=== PATIENT | female | born 1985 | race African-American/Black ===

== ENCOUNTER 2019-03-02 05:50 | Inpatient (IN) ==
[2019-03-02 07:08] LABS: URINE SOURCE CLEAN CATCH
[2019-03-02 07:16] LABS: BILIRUBIN URINE NEGATIVE (NEGATIVE); BLOOD URINE NEGATIVE (NEGATIVE); COLOR ORANGE; GLUCOSE URINE NEGATIVE (NEGATIVE); KETONE URINE NEGATIVE (NEGATIVE); LEUKOCYTES URINE TRACE (NEGATIVE); NITRITE URINE NEGATIVE (NEGATIVE); PROTEIN URINE TRACE mg/dL (NEGATIVE); SP GRAVITY URINE 1.014; TURBIDITY URINE HAZY (CLEAR); UROBILINOGEN URINE 8 mg/dL (NORMAL)
[2019-03-02] MEDS ORDERED: NS 1,000 ML IV ONE (07:16)
[2019-03-02] MEDS ORDERED: DILAUDID IV ONE ×2 (07:17→09:58)
[2019-03-02] MEDS ORDERED: PHENERGAN IM ONE (07:17)
[2019-03-02] MEDS ORDERED: CATAPRES-TTS-1 TD ONE (07:17)
[2019-03-02] MEDS ORDERED: ZOFRAN IV ONE (07:17)
[2019-03-02] MEDS ORDERED: BENADRYL IV ONE (07:17)
[2019-03-02] MEDS ORDERED: NORFLEX IV ONE (07:17)
[2019-03-02] MEDS ORDERED: LIBRIUM PO ONE (07:17)
[2019-03-02 07:18] LABS: UR EPITHELIAL CELLS >10 /HPF (<10); URINE BACTERIA 1+ /HPF; URINE RBC <10 /HPF (<10); URINE WBC <10 /HPF (<10)
[2019-03-02] MEDS ORDERED: EMLA CREAM ONE (07:20)
[2019-03-02 07:31] LABS: UR AMPHETAMINES QUAL NONE DETECTED (NONE DETECT); UR BARBITUATES QUAL NONE DETECTED (NONE DETECT); UR BENZODIAZEPIN QUAL NONE DETECTED (NONE DETECT); UR CANNABINOIDS QUAL NONE DETECTED (NONE DETECT); UR COCAINE QUAL NONE DETECTED (NONE DETECT); UR METHADONE QUAL NONE DETECTED (NONE DETECT); UR OPIATES QUAL NONE DETECTED (NONE DETECT); UR OXYCODONE QUAL NONE DETECTED (NONE DETECT); UR PCP QUAL NONE DETECTED (NONE DETECT)
--- NOTE | 2019-03-02 08:00 | Diag Imaging Result Doc PS360 ---
EXAM: CHEST-2 VIEWS HISTORY: short of breath TECHNIQUE: Two views COMPARISON: 12/31/2017 FINDINGS: The lungs are well expanded. The heart is not enlarged. There is a right portacatheter. No pneumothorax. The vessels are not distended. There are no infiltrates. No pleural effusions. IMPRESSION: No acute abnormality. Electronically signed by Garret Benedict 03/02/2019 7:58 AM
[2019-03-02 08:35] LABS: BASO# 0.03 X1000 (0.0-0.2); BASO% 0.2 % (0.0-0.8); EOS# 0.33 X1000 (0.0-0.7); EOS% 2.1 % (0.0-10.0); HEMATOCRIT 22.3 % (37.0-47.0); HEMOGLOBIN 7.3 g/dL (12.0-16.0); IMM GRAN# 0.03 X1000 (0.0-0.04); IMM GRAN% 0.2 % (0.0-0.5); LYMPH# 7.79 X1000 (1.2-3.4); LYMPH% 48.7 % (20.5-51.1); MCH 31.3 PG (27-31); MCHC 32.7 g/dL (33-37); MCV 95.7 FL (81-99); MONO# 0.81 X1000 (0.11-0.59); MONO% 5.1 % (1.7-9.3); MPV 10.7 FL (7.4-10.4); NEUT# 7.01 X1000 (1.4-6.5); NEUT% 43.7 % (42.2-75.2); PLT 287 X1000 (130-400); RBC 2.33 XMIL (4.2-5.4); RDW 22.4 % (11.5-14.5); RETIC% 9.24 % (0.8-2.1); RETIC-HE 39.7 PG (28.2-36.6)
[2019-03-02 08:49] LABS: AGAP 10; ALBUMIN 3.7 g/dL (3.5-5.0); ALKALINE PHOSPHATASE 104 U/L (32-104); BUN 5 mg/dL (8-22); CALCIUM 8.8 mg/dL (8.8-10.2); CHLORIDE 103 mmol/L (98-107); COSMO 278; CREATININE 0.3 mg/dL (0.5-0.9); ESTIMATED GFR > 60; GLUCOSE 97 mg/dL (70-104); GOT 33 U/L (10-30); GPT 12 U/L (10-36); SODIUM 141 mmol/L (136-145); TCO2 28 mmol/L (25-35); TOTAL BILIRUBIN 1.74 mg/dL (0.20-1.00); TOTAL PROTEIN 7.3 g/dL (6.3-8.3)
[2019-03-02] MEDS ORDERED: KLOR-CON PO ONE ×2 (09:55→13:00)
[2019-03-02] MEDS ORDERED: SEPTRA DS PO ONE (09:56)
[2019-03-02] MEDS ORDERED: BENADRYL PO ONE (09:57)
[2019-03-02] MEDS ORDERED: TYLENOL PO ONE (09:57)
[2019-03-02] MEDS ORDERED: NS 500 ML IV ONE (09:57)
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
[2019-03-02] MEDS ORDERED: LASIX IV SCH (10:00)
[2019-03-02] MEDS ORDERED: PHENERGAN IV PRN ×2 (11:30→16:17)
[2019-03-02] MEDS ORDERED: SODIUM CHLORIDE 0.9% INJ PRN (11:30)
[2019-03-02] MEDS: DEPAKOTE PO SCH ×2 (13:37→17:37)
[2019-03-02] MEDS: KEPPRA PO SCH (13:37)
[2019-03-02] MEDS: HYDREA PO SCH ×2 (13:38→21:15)
[2019-03-02] MEDS: NS 1,000 ML IV SCH ×2 (13:38→19:16)
[2019-03-02] MEDS: DILAUDID IV PRN ×3 (14:34→21:05)
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
[2019-03-02] MEDS: SEROQUEL PO SCH (21:04)
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
[2019-03-03] MEDS ORDERED: DILAUDID PO PRN (02:00)
[2019-03-03] MEDS: NS 1,000 ML IV SCH ×3 (03:19→22:00)
[2019-03-03] MEDS: PHENERGAN PO PRN ×2 (04:46→12:09)
[2019-03-03 05:23] LABS: BASO# 0.04 X1000 (0.0-0.2); BASO% 0.2 % (0.0-0.8); EOS# 0.58 X1000 (0.0-0.7); EOS% 3.3 % (0.0-10.0); HEMATOCRIT 20.7 % (37.0-47.0); HEMOGLOBIN 6.7 g/dL (12.0-16.0); IMM GRAN# 0.03 X1000 (0.0-0.04); IMM GRAN% 0.2 % (0.0-0.5); LYMPH# 11.21 X1000 (1.2-3.4); LYMPH% 63.5 % (20.5-51.1); MCH 31.2 PG (27-31); MCHC 32.4 g/dL (33-37); MCV 96.3 FL (81-99); MONO# 0.74 X1000 (0.11-0.59); MONO% 4.2 % (1.7-9.3); MPV 10.2 FL (7.4-10.4); NEUT# 5.06 X1000 (1.4-6.5); NEUT% 28.6 % (42.2-75.2); PLT 288 X1000 (130-400); RBC 2.15 XMIL (4.2-5.4); RDW 22.5 % (11.5-14.5); WBC 17.66 X1000 (4.8-10.8)
[2019-03-03 05:47] LABS: EOS 6 % (1-10); LYMPHS 58 % (21-51); MONO 2 % (1-9); NRBC 20 % (0-0); SEGS 32 % (42-75)
[2019-03-03 05:54] LABS: AGAP 11; BUN 4 mg/dL (8-22); CALCIUM 8.3 mg/dL (8.8-10.2); CHLORIDE 104 mmol/L (98-107); COSMO 274; CREATININE 0.3 mg/dL (0.5-0.9); ESTIMATED GFR > 60; GLUCOSE 86 mg/dL (70-104); POTASSIUM 3.9 mmol/L (3.5-5.1); SODIUM 139 mmol/L (136-145); TCO2 24 mmol/L (25-35)
[2019-03-03] MEDS ORDERED: BENADRYL PO SCH (09:00)
[2019-03-03] MEDS: BENADRYL PO SCH (09:36)
[2019-03-03] MEDS: DEPAKOTE PO SCH ×3 (09:36→17:37)
[2019-03-03] MEDS: HYDREA PO SCH ×2 (09:40→21:49)
[2019-03-03] MEDS: KEPPRA PO SCH (09:40)
[2019-03-03] MEDS: FOLIC ACID PO SCH (09:40)
[2019-03-03] MEDS: MAGNESIUM SULFATE 2 GM/S.W.I. 2 GM/50 ML IVPB IV SCH ×2 (09:49→15:21)
[2019-03-03 10:34] LABS: FERRITIN 12134 ng/mL (13-150)
[2019-03-03 11:05] LABS: TOTAL IRON 169 ug/dL (49-151)
[2019-03-03 11:06] LABS: UNBOUND IRON 3 ug/dL (112-346)
[2019-03-03 11:07] LABS: IRON SATURATION 98 %; TIBC 172 ug/dL
[2019-03-03] MEDS ORDERED: TESSALON PO PRN (11:07)
[2019-03-03] MEDS: DILAUDID IV PRN ×4 (12:10→21:56)
--- NOTE | 2019-03-03 12:48 | PROGRESS NOTE ---
DATE: 03/03/2019 INTERVAL HISTORY: No acute events overnight. The patient states that she had an episode of vomiting overnight. She does not feel like eating anything at the moment. We discussed about continuing IV fluids and pain management. I answered all of her questions. VITAL SIGNS: Suggests temperature of 97.5 degrees, pulse 95, respiratory rate 12, blood pressure 126/51 and saturating 100% room air. PHYSICAL EXAMINATION: She is drowsy not in any distress. HEENT: Oral cavity is dry. Lungs: Air entry bilaterally equal. No wheeze, rhonchi, crackles. Cardiovascular: S1, S2 normal. No murmur or gallop. She has a right-sided chest port. Abdomen: Soft, nontender. Extremities: No lower extremity edema. Neurologic: She is alert and oriented x3. LABORATORY: Labs are suggestive of leukocytosis, anemia, normal platelet count, and resolution of hypokalemia. She also has hypomagnesemia. Iron panel is pending. The flu screen was negative. No new imaging data. ASSESSMENT AND PLAN: Sickle cell crisis. Continue intravenous fluids, and oral hydromorphone. I will give her additional pain medication as required. Follow-up iron studies. Based on that, I will consider giving her 1 unit of blood transfusion. I will continue her home hydroxyurea and folic acid. Recent craniotomy. Continue home Keppra and Depakote for seizure prophylaxis. History of bipolar mood disorder. Continue her home Depakote as well as quetiapine. DISPOSITION: I will currently monitor patient inside the hospital. I called patient's sister on her phone and informed her about patient's clinical condition. The sister requested that the patient should get [place] or Percocet for her pain since the hydromorphone does not help. She also requested if I could write her a prescription of pain medications, and other medications at the time of discharge, and find a regular physician. I would request my discharge nurse to help set up an appointment with her regular physician. cc: Trey [facility] MD
[2019-03-03] MEDS: SEROQUEL PO SCH (21:49)
[2019-03-04] MEDS: DILAUDID IV PRN ×2 (01:39→05:14)
[2019-03-04 05:59] LABS: HEMATOCRIT 20.3 % (37.0-47.0); HEMOGLOBIN 6.6 g/dL (12.0-16.0); RBC 2.09 XMIL (4.2-5.4); WBC 14.31 X1000 (4.8-10.8)
[2019-03-04 06:00] LABS: BASO# 0.03 X1000 (0.0-0.2); BASO% 0.2 % (0.0-0.8); EOS# 0.45 X1000 (0.0-0.7); EOS% 3.1 % (0.0-10.0); IMM GRAN# 0.04 X1000 (0.0-0.04); IMM GRAN% 0.3 % (0.0-0.5); LYMPH# 9.26 X1000 (1.2-3.4); LYMPH% 64.7 % (20.5-51.1); MCH 31.6 PG (27-31); MCHC 32.5 g/dL (33-37); MCV 97.1 FL (81-99); MONO% 3.5 % (1.7-9.3); MPV 10.3 FL (7.4-10.4); NEUT# 4.03 X1000 (1.4-6.5); NEUT% 28.2 % (42.2-75.2); PLT 289 X1000 (130-400); RDW 23.5 % (11.5-14.5)
[2019-03-04] MEDS: NS 1,000 ML IV SCH ×3 (06:36→11:58)
[2019-03-04] MEDS ORDERED: DILAUDID PO PRN (07:00)
[2019-03-04 07:29] LABS: ANISOCYTOSIS 3+; HYPOCHROM 2+; LYMPHS 59 % (21-51); MONO 1 % (1-9); NRBC 21 % (0-0); SEGS 40 % (42-75)
[2019-03-04 07:30] LABS: POIKILOCYTOSIS 3+; TARGET CELLS 3+
[2019-03-04 07:31] LABS: SICKLE CELLS 2+
[2019-03-04] MEDS: DEPAKOTE PO SCH ×4 (08:35→18:19)
[2019-03-04] MEDS: KEPPRA PO SCH (08:35)
[2019-03-04] MEDS: FOLIC ACID PO SCH (08:35)
[2019-03-04] MEDS: BENADRYL PO SCH (08:35)
[2019-03-04] MEDS: HYDREA PO SCH ×2 (08:38→21:23)
[2019-03-04 15:43] LABS: RETIC% 13.76 % (0.8-2.1); RETIC-HE 37.1 PG (28.2-36.6)
[2019-03-04] MEDS: DILAUDID PO PRN (17:08)
[2019-03-04] MEDS: LOVENOX SUBQ SCH (17:09)
[2019-03-04] MEDS: SEROQUEL PO SCH (21:22)
[2019-03-05] MEDS: NS 1,000 ML IV SCH ×3 (01:31→10:55)
--- NOTE | 2019-03-05 02:49 | PROGRESS NOTE ---
DATE: 03/04/2019 INTERVAL HISTORY: No acute events overnight. Her hemoglobin dropped. SUBJECTIVE: The patient denies any chest pain, shortness of breath, nausea, vomiting, abdominal pain or diarrhea. She states she still has pain in her body, but it is better than before. She wants me to address her hemoglobin and I discussed with her, but she denies any dizziness, so in agreement with each other, decided to check the hemoglobin tomorrow and if it drops down, give her blood transfusion at that time. She is in agreement. OBJECTIVE: Vital signs: Temperature 98 degrees, pulse 102, respiratory 24, blood pressure 133/69, saturating 100% on 1 L nasal cannula. General: She is not in any acute distress. HEENT: Oral cavity is moist. Lungs: Air equal bilaterally. No wheeze, no rhonchi, no crackles. Cardiovascular: S1, S2 normal. No murmur, rub, or gallop. She has a right-sided chest port. Abdomen: Soft, nontender. Extremity: No lower extremity edema. Neurologic: She is alert and oriented x3. LABS: Suggestive of hemoglobin of 6.6, which decreased from 7.3 on presentation. Historically, her hemoglobin has been around 7.8. Platelet count is 289,000. She does have elevated reticulocyte count. No BMP today. Microbiology: Influenza screen on admission was negative. Urine culture is growing mixed shilo. ASSESSMENT AND PLAN: 1. Sickle cell crisis. Continue intravenous fluids. Increase the frequency of oral hydromorphone and give Phenergan as needed for nausea and vomiting. Iron studies suggest excessive amount of ferritin and increased hemoglobin saturation with high serum iron. I would avoid blood transfusion as much as possible. She does have low folic acid and she is on folic acid supplement. Her vaso-occlusive crisis appears to be uncomplicated at the moment. I will follow up with hemoglobin tomorrow. If she has symptoms or she has worsening hemoglobin, then we will consider blood transfusion. 2. History of recent craniotomy and seizure. Continue levetiracetam, quetiapine and divalproex. I will also continue her home hydroxyurea for sickle cell with folic acid. DISPOSITION: Continue to monitor patient in the hospital as she is still complaining of pain. Plan of care discussed with her. All questions have been answered. cc: Trey Ledezma MD
[2019-03-05 06:03] LABS: BASO# 0.03 X1000 (0.0-0.2); BASO% 0.2 % (0.0-0.8); HEMATOCRIT 20.9 % (37.0-47.0); HEMOGLOBIN 6.9 g/dL (12.0-16.0); MCH 32.7 PG (27-31); MCV 99.1 FL (81-99); MPV 10.1 FL (7.4-10.4); PLT 275 X1000 (130-400); RBC 2.11 XMIL (4.2-5.4); RDW 25.6 % (11.5-14.5); WBC 12.23 X1000 (4.8-10.8)
[2019-03-05 08:00] LABS: EOS 2 % (1-10); LYMPHS 72 % (21-51); MONO 2 % (1-9); NRBC 7 % (0-0); SEGS 22 % (42-75)
[2019-03-05 08:01] LABS: ANISOCYTOSIS 2+; HYPOCHROM 1+; POIKILOCYTOSIS 1+
[2019-03-05 08:03] LABS: HOWELL-JOLLY BODIES 1+
[2019-03-05] MEDS: KEPPRA PO SCH (08:58)
[2019-03-05] MEDS: BENADRYL PO SCH (08:58)
[2019-03-05] MEDS: HYDREA PO SCH ×2 (08:58→21:18)
[2019-03-05] MEDS: FOLIC ACID PO SCH (08:58)
[2019-03-05] MEDS: DEPAKOTE PO SCH ×3 (08:58→17:15)
[2019-03-05] MEDS: MIRALAX PO SCH (09:00)
[2019-03-05] MEDS ORDERED: NS 500 ML IV ONE (16:11)
[2019-03-05 16:23] LABS: AGAP 10; BUN 5 mg/dL (8-22); CALCIUM 8.8 mg/dL (8.8-10.2); CHLORIDE 104 mmol/L (98-107); COSMO 276; CREATININE 0.4 mg/dL (0.5-0.9); ESTIMATED GFR > 60; GLUCOSE 118 mg/dL (70-104); MAGNESIUM 1.5 mg/dL (1.5-2.7); POTASSIUM 3.5 mmol/L (3.5-5.1); SODIUM 139 mmol/L (136-145); TCO2 25 mmol/L (25-35)
[2019-03-05] MEDS: KLOR-CON PO SCH ×2 (17:16→21:18)
[2019-03-05] MEDS: PHENERGAN PO PRN (17:41)
[2019-03-05] MEDS: DILAUDID PO PRN ×2 (17:42→22:17)
[2019-03-05] MEDS: MAGNESIUM SULFATE 2 GM/S.W.I. 2 GM/50 ML IVPB IV SCH ×2 (17:43→21:16)
[2019-03-05] MEDS: LOVENOX SUBQ SCH (18:07)
[2019-03-05] MEDS: SEROQUEL PO SCH (21:16)
--- NOTE | 2019-03-05 21:22 | PROGRESS NOTE ---
DATE: 03/05/2019 INTERVAL HISTORY: No acute events overnight. SUBJECTIVE: Ms. Mtz states that she is feeling weak and sleepy, and she thinks this is related to her low blood count. She in fact has not required a lot of pain medications, and she is feeling better in terms of her pain. She wants to know if she could be discharged tomorrow. I discussed with her about giving her a blood transfusion considering her low blood count and her symptoms of feeling weak, dizzy and sleepy. OBJECTIVE/PHYSICAL EXAMINATION: Vital Signs: Temperature 98.1, pulse 98, respiratory rate 16, blood pressure 112/59, saturating 100% on room air. General: Not in acute distress. HEENT: Oral cavity has poor dentition. Lungs: Air entry bilaterally equal. No wheeze, rhonchi, crackles. Cardiovascular: S1, S2 normal. No murmur or gallop. She has a right-sided chest port. Abdomen: Soft, nontender. Extremities: No lower extremity edema. Neurologic: She is alert and oriented x3. LABORATORY DATA: Her CBC has mild leukocytosis which has improved. Hemoglobin of 6.9, platelet of 275. Her BMP and magnesium today are pending. Microbiology: No new data. ASSESSMENT AND PLAN: 1. Sickle cell crisis, now appears to be improving. I will stop intravenous fluids. Discontinue Pleitez catheter. Continue current dose of oral hydromorphone and Phenergan as needed for nausea and vomiting. Considering she is symptomatic of her anemia, I will give her 1 unit of blood transfusion. Her baseline hemoglobin has been around 8. I will continue folic acid supplementation. 2. History of recent craniotomy and seizures. Continue levetiracetam, quetiapine, and divalproex, as well as hydroxyurea for her sickle-cell. DISPOSITION: If the patient's blood count improves tomorrow, my plan would be to discharge her home. Plan of care discussed with her. Her questions have been answered. cc: Trey Ledezma MD
--- NOTE | 2019-03-05 21:28 | PROGRESS NOTE ---
DATE: 03/05/2019 INTERVAL HISTORY: No acute events overnight. SUBJECTIVE: Ms. Mtz is complaining of some dizziness and feeling weak, so we decided to give her a blood transfusion. Her vitals are stable. LABORATORIES: Suggest electrolytes are normal, except low potassium, magnesium which I will replete. ASSESSMENT: 1. Sickle cell crisis. 2. History of recent craniotomy and seizures. PLAN: 1. Continue hydroxyurea, folic acid, give another transfusion. 2. Continue antiseizure medication. 3. Discharging tomorrow. cc: Trey Ledezma MD
[2019-03-06] MEDS: PHENERGAN PO PRN (02:35)
[2019-03-06] MEDS: DILAUDID PO PRN (02:36)
[2019-03-06] MEDS: MIRALAX PO SCH (08:34)
[2019-03-06] MEDS: HYDREA PO SCH (08:35)
[2019-03-06] MEDS: FOLIC ACID PO SCH (08:35)
[2019-03-06] MEDS: KEPPRA PO SCH (08:35)
[2019-03-06] MEDS: DEPAKOTE PO SCH ×2 (08:35→12:23)
[2019-03-06] MEDS: BENADRYL PO SCH (08:35)
[2019-03-06 08:50] LABS: HEMATOCRIT 26.5 % (37.0-47.0); HEMOGLOBIN 8.9 g/dL (12.0-16.0); MCH 33.1 PG (27-31); MCHC 33.6 g/dL (33-37); MCV 98.5 FL (81-99); MPV 9.6 FL (7.4-10.4); PLT 246 X1000 (130-400); RBC 2.69 XMIL (4.2-5.4); WBC 16.31 X1000 (4.8-10.8)
[2019-03-06 09:06] LABS: EOS 5 % (1-10); LYMPHS 69 % (21-51); MONO 3 % (1-9); NRBC 49 % (0-0); SEGS 23 % (42-75)
[2019-03-06 09:08] LABS: ANISOCYTOSIS 1+; HYPOCHROM 1+; POLYCHROM 1+
[2019-03-06 09:12] LABS: SICKLE CELLS OCCASIONAL
[2019-03-06 11:46] VITALS: BP 119/55
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
== END 2019-03-06 14:19 | disposition home or self-care (01) | DRG 812 ==
LOC: ED 05:50 → EDIPHOLD 10:53 → 1N 15:02
PROVIDERS: ATTEND Internal Medicine

== ENCOUNTER 2019-03-12 11:52 | Inpatient (IN) ==
[2019-03-12 12:51] LABS: BASO# 0.02 X1000 (0.0-0.2); BASO% 0.2 % (0.0-0.8); EOS# 0.38 X1000 (0.0-0.7); EOS% 2.9 % (0.0-10.0); IMM GRAN# 0.03 X1000 (0.0-0.04); IMM GRAN% 0.2 % (0.0-0.5); LYMPH# 5.73 X1000 (1.2-3.4); LYMPH% 44.3 % (20.5-51.1); MCH 33.5 PG (27-31); MCHC 33.3 g/dL (33-37); MCV 100.4 FL (81-99); MONO# 1.14 X1000 (0.11-0.59); MONO% 8.8 % (1.7-9.3); MPV 10.4 FL (7.4-10.4); NEUT# 5.64 X1000 (1.4-6.5); NEUT% 43.6 % (42.2-75.2); PLT 268 X1000 (130-400); RBC 2.69 XMIL (4.2-5.4); RDW 23.5 % (11.5-14.5); WBC 12.94 X1000 (4.8-10.8)
[2019-03-12 12:52] LABS: URINE SOURCE CLEAN CATCH
[2019-03-12 12:59] LABS: BILIRUBIN URINE NEGATIVE (NEGATIVE); BLOOD URINE NEGATIVE (NEGATIVE); COLOR YELLOW; GLUCOSE URINE NEGATIVE (NEGATIVE); KETONE URINE NEGATIVE (NEGATIVE); LEUKOCYTES URINE NEGATIVE (NEGATIVE); NITRITE URINE NEGATIVE (NEGATIVE); PROTEIN URINE TRACE mg/dL (NEGATIVE); SP GRAVITY URINE 1.015; TURBIDITY URINE HAZY (CLEAR); UROBILINOGEN URINE 2 mg/dL (NORMAL)
[2019-03-12 13:01] LABS: UR EPITHELIAL CELLS >10 /HPF (<10); URINE BACTERIA 1+ /HPF; URINE RBC <10 /HPF (<10); URINE WBC <10 /HPF (<10)
[2019-03-12 13:02] LABS: AGAP 8; ALB/GLOB RATIO 1.1; ALBUMIN 4.1 g/dL (3.5-5.0); ALKALINE PHOSPHATASE 126 U/L (32-104); BUN 12 mg/dL (8-22); CHLORIDE 101 mmol/L (98-107); COSMO 272; CREATININE 0.4 mg/dL (0.5-0.9); ESTIMATED GFR > 60; GLUCOSE 99 mg/dL (70-104); GOT 43 U/L (10-30); GPT 22 U/L (10-36); POTASSIUM 4.1 mmol/L (3.5-5.1); SODIUM 136 mmol/L (136-145); TCO2 27 mmol/L (25-35); TOTAL BILIRUBIN 1.03 mg/dL (0.20-1.00); TOTAL PROTEIN 7.7 g/dL (6.3-8.3)
--- NOTE | 2019-03-12 13:16 | Diag Imaging Result Doc PS360 ---
EXAM: CHEST-1 VIEW - 03/12/2019 HISTORY: cough, chills TECHNIQUE: Portable chest one view COMPARISON: 03/02/2019 FINDINGS: Heart size appears upper normal and stable. Inspiration is somewhat shallow. The lungs appear clear except for slight basilar linear scarring. There is no consolidation, pleural effusion, or pneumothorax identified. Central venous catheter remains in place. IMPRESSION: Somewhat shallow inspiration. No evidence of pneumonia. Electronically signed by Richard Yepez 03/12/2019 1:14 PM
[2019-03-12 13:17] LABS: ANISOCYTOSIS 2+; EOS 5 % (1-10); LYMPHS 43 % (21-51); MONO 10 % (1-9); SEGS 41 % (42-75)
[2019-03-12 13:18] LABS: POIKILOCYTOSIS 1+; STOMATOCYTES 1+
--- NOTE | 2019-03-12 14:39 | Diag Imaging Result Doc PS360 ---
EXAM: CT HEAD W/O CONTRAST - 03/12/2019 HISTORY: headache, hx ICH TECHNIQUE: CT head without contrast COMPARISON: Outside exam from [facility] dated 03/08/2019 FINDINGS: There are postsurgical changes of left frontotemporal craniotomy similar to prior. There is encephalomalacia at the left frontotemporal region similar to prior. There are right frontal and left frontal parietal mixed density subdural hematomas similar to prior. These measure approximately 1 cm on the right and slightly greater than 1 cm on the left, similar to prior. Compared the prior exam, there is no new intracranial hemorrhage identified. There is stable mild ventricular asymmetry. There is no substantial midline shift. Compared to the prior exam, there are no significant interval changes identified. Visualized portions of paranasal sinuses and mastoid air cells appear clear. IMPRESSION: Stable exam compared to 03/11/2019. Postsurgical changes with encephalomalacia at left frontotemporal region. Bilateral mixed density subdural hematomas. This exam was performed using automated exposure control, adjustment of mA or kV according to patient size, and/or use of iterative reconstruction technique. Electronically signed by Richard Yepez 03/12/2019 2:37 PM
--- NOTE | 2019-03-12 17:03 | Diag Imaging Result Doc PS360 ---
EXAM: US GB < RUQ (LIMITED) - 03/12/2019 HISTORY: ruq pain TECHNIQUE: Ultrasound gallbladder COMPARISON: None. FINDINGS: The gallbladder is not visualized. If the gallbladder has not previously been surgically removed, then it may be contracted and/or obscured by bowel gas artifacts. What appears to represent the common bile duct is normal caliber at 5.7 mm. There are no abnormalities of the liver identified. Visualized portions of the pancreas are unremarkable. The right kidney is unremarkable except for a 1 cm cyst. IMPRESSION: The gallbladder is not visualized. Electronically signed by Richard Yepez 03/12/2019 5:01 PM
[2019-03-12] MEDS ORDERED: DILAUDID IV ONE (17:24)
[2019-03-12] MEDS ORDERED: 1/2 NS 1,000 ML IV ONE (17:24)
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
[2019-03-12 18:53] LABS: RETIC% 7.02 % (0.8-2.1); RETIC-HE 38.9 PG (28.2-36.6)
[2019-03-12] MEDS ORDERED: SODIUM BICARBONATE 8.4% 150 MEQ in D5W 1,000 ML IV SCH (19:00)
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
[2019-03-12] MEDS: NS 1,000 ML IV SCH (19:38)
[2019-03-12] MEDS: PHENERGAN IV PRN (19:39)
[2019-03-12] MEDS: SODIUM CHLORIDE 0.9% INJ PRN (19:39)
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
[2019-03-12] MEDS: DILAUDID IV PRN (22:24)
[2019-03-12] MEDS: HYDREA PO SCH (23:33)
[2019-03-13] MEDS: SODIUM CHLORIDE 0.9% INJ PRN (00:10)
[2019-03-13] MEDS: PHENERGAN IV PRN ×5 (00:10→21:38)
[2019-03-13] MEDS: DILAUDID IV PRN ×5 (02:22→21:38)
[2019-03-13] MEDS: NS 1,000 ML IV SCH ×2 (06:22→15:03)
[2019-03-13 07:03] LABS: BASO# 0.03 X1000 (0.0-0.2); BASO% 0.2 % (0.0-0.8); EOS% 3.1 % (0.0-10.0); HEMATOCRIT 25.1 % (37.0-47.0); HEMOGLOBIN 8.2 g/dL (12.0-16.0); IMM GRAN# 0.02 X1000 (0.0-0.04); IMM GRAN% 0.2 % (0.0-0.5); LYMPH# 7.25 X1000 (1.2-3.4); MCH 33.1 PG (27-31); MCHC 32.7 g/dL (33-37); MCV 101.2 FL (81-99); MONO# 0.88 X1000 (0.11-0.59); MONO% 6.8 % (1.7-9.3); MPV 10.5 FL (7.4-10.4); NEUT# 4.37 X1000 (1.4-6.5); NEUT% 33.7 % (42.2-75.2); PLT 283 X1000 (130-400); RBC 2.48 XMIL (4.2-5.4); RDW 23.4 % (11.5-14.5); WBC 12.95 X1000 (4.8-10.8)
[2019-03-13 07:15] LABS: RETIC% 7.27 % (0.8-2.1); RETIC-HE 39.4 PG (28.2-36.6)
[2019-03-13 07:23] LABS: AGAP 11; BUN 12 mg/dL (8-22); CALCIUM 8.5 mg/dL (8.8-10.2); CHLORIDE 100 mmol/L (98-107); COSMO 271; CREATININE 0.3 mg/dL (0.5-0.9); ESTIMATED GFR > 60; GLUCOSE 81 mg/dL (70-104); POTASSIUM 3.9 mmol/L (3.5-5.1); SODIUM 136 mmol/L (136-145); TCO2 25 mmol/L (25-35)
[2019-03-13 07:25] LABS: EOS 2 % (1-10); LYMPHS 62 % (21-51); MONO 4 % (1-9); NRBC 1 % (0-0); SEGS 28 % (42-75)
[2019-03-13 07:26] LABS: ANISOCYTOSIS 1+; HYPOCHROM OCCASIONAL; MICROCYTOSIS OCCASIONAL
[2019-03-13 07:28] LABS: SCHISTOCYTES OCCASIONAL; TARGET CELLS OCCASIONAL
[2019-03-13 07:29] LABS: SICKLE CELLS OCCASIONAL
[2019-03-13 09:13] LABS: UR AMPHETAMINES QUAL NONE DETECTED (NONE DETECT); UR BARBITUATES QUAL NONE DETECTED (NONE DETECT); UR BENZODIAZEPIN QUAL NONE DETECTED (NONE DETECT); UR CANNABINOIDS QUAL NONE DETECTED (NONE DETECT); UR COCAINE QUAL NONE DETECTED (NONE DETECT); UR METHADONE QUAL NONE DETECTED (NONE DETECT); UR OPIATES QUAL NONE DETECTED (NONE DETECT); UR OXYCODONE QUAL NONE DETECTED (NONE DETECT); UR PCP QUAL NONE DETECTED (NONE DETECT)
[2019-03-13] MEDS: FOLIC ACID PO SCH (10:22)
[2019-03-13] MEDS: DEPAKOTE PO SCH ×3 (10:23→18:09)
[2019-03-13] MEDS: HYDREA PO SCH ×2 (10:23→21:38)
[2019-03-13] MEDS: KEPPRA PO SCH (10:23)
[2019-03-13] MEDS ORDERED: DILAUDID IV PRN (12:21)
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
[2019-03-14] MEDS: NS 1,000 ML IV SCH ×3 (00:59→14:57)
[2019-03-14] MEDS: DILAUDID IV PRN ×4 (05:05→23:26)
[2019-03-14] MEDS: PHENERGAN IV PRN ×4 (05:05→23:26)
[2019-03-14] MEDS: SODIUM CHLORIDE 0.9% INJ PRN ×2 (05:05→23:27)
[2019-03-14 08:07] LABS: BASO# 0.03 X1000 (0.0-0.2); BASO% 0.3 % (0.0-0.8); EOS# 0.27 X1000 (0.0-0.7); EOS% 2.5 % (0.0-10.0); HEMATOCRIT 25.2 % (37.0-47.0); HEMOGLOBIN 8.2 g/dL (12.0-16.0); IMM GRAN# 0.02 X1000 (0.0-0.04); IMM GRAN% 0.2 % (0.0-0.5); LYMPH# 5.72 X1000 (1.2-3.4); LYMPH% 52.2 % (20.5-51.1); MCH 33.1 PG (27-31); MCHC 32.5 g/dL (33-37); MCV 101.6 FL (81-99); MONO# 0.66 X1000 (0.11-0.59); MPV 10.3 FL (7.4-10.4); NEUT# 4.26 X1000 (1.4-6.5); NEUT% 38.8 % (42.2-75.2); PLT 345 X1000 (130-400); RBC 2.48 XMIL (4.2-5.4); RDW 23.3 % (11.5-14.5); WBC 10.96 X1000 (4.8-10.8)
[2019-03-14 08:24] LABS: AGAP 10; BUN 7 mg/dL (8-22); CHLORIDE 104 mmol/L (98-107); COSMO 279; CREATININE 0.3 mg/dL (0.5-0.9); ESTIMATED GFR > 60; GLUCOSE 87 mg/dL (70-104); POTASSIUM 3.9 mmol/L (3.5-5.1); SODIUM 141 mmol/L (136-145); TCO2 27 mmol/L (25-35)
--- NOTE | 2019-03-14 08:38 | EKG Report ---
Test Performed on : 03/12/2019 12:05:35 PM Test Reason : ED. NO EKG ORDER FOR MUSE Blood Pressure : / mmHG Vent. Rate : 107 BPM Atrial Rate : 107 BPM P-R Int : 126 ms QRS Dur : 098 ms QT Int : 252 ms P-R-T Axes : 062 027 034 degrees QTc Int : 336 ms Sinus tachycardia. Voltage criteria for left ventricular hypertrophy Nonspecific T wave abnormality Abnormal ECG When compared with ECG of 01-JAN-2018 15:34, QT has shortened Unconfirmed Result
[2019-03-14 08:39] LABS: BANDS 1 % (0-1); EOS 2 % (1-10); LYMPHS 44 % (21-51); MONO 5 % (1-9); SEGS 46 % (42-75)
[2019-03-14 08:40] LABS: ANISOCYTOSIS 1+; HYPOCHROM 1+
[2019-03-14] MEDS: FOLIC ACID PO SCH (11:09)
[2019-03-14] MEDS: HYDREA PO SCH ×2 (11:09→21:43)
[2019-03-14] MEDS: KEPPRA PO SCH (11:09)
[2019-03-14] MEDS: DEPAKOTE PO SCH ×3 (11:09→17:19)
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
[2019-03-15] MEDS: PHENERGAN IV PRN ×2 (06:18→12:17)
[2019-03-15] MEDS: DILAUDID IV PRN ×2 (06:18→12:17)
[2019-03-15] MEDS: FOLIC ACID PO SCH (08:56)
[2019-03-15] MEDS: NS 1,000 ML IV SCH ×2 (08:56→13:06)
[2019-03-15] MEDS: KEPPRA PO SCH (08:56)
[2019-03-15] MEDS: DEPAKOTE PO SCH ×2 (08:56→13:05)
[2019-03-15] MEDS: HYDREA PO SCH (08:56)
[2019-03-15 12:01] VITALS: BP 123/71
--- NOTE | 2019-03-16 19:07 | DISCHARGE SUMMARY ---
ADMISSION DATE: 03/12/2019 DISCHARGE DATE: 03/15/2019 DISCHARGE DIAGNOSIS: 1. Sickle cell crisis, resolved. 2. Bipolar disorder. 3. Depression. 4. Schizophrenia. 5. Seizure disorder. 6. Chronic opiate use. PROCEDURES: Chest x-ray done on admission showed shallow inspiration, but no evidence of pneumonia. Head CT showed stable exam compared with 03/11/2019. Postsurgical changes with encephalomalacia at the left frontotemporal region, with bilateral mixed density subdural hematomas. HOSPITAL COURSE: In brief, this is a 33-year-old female with history of sickle cell disease, who was brought to the emergency department with a friend complaining that she had a sickle cell crisis. Apparently, the main complaint was that she has been sleepy for 5 days. The patient was admitted to the hospital. We were checking her CBC on a daily basis. After treating, we think this patient is not in any sickle cell crisis. Hemoglobin has been stable with reticulocyte count acceptable, so patient is going to be discharged in stable condition. DISCHARGE PHYSICAL EXAMINATION: Vital signs: Temperature 98.1 degrees, heart rate 95, respiratory rate 22, blood pressure 123/71, O2 saturation 99% on room air. General: This is a 33- year-old, female lying in bed, in no acute distress. Cardiovascular: S1, S2 heard. No murmurs, gallops, or rubs. Regular rate and rhythm. Respiratory: Clear bilaterally to auscultation. No work of breathing or using accessory muscles. Abdomen: Soft, nontender to palpation. Bowel sounds present. No organomegaly. Extremities: No clubbing, cyanosis, or edema. Peripheral pulses present in both legs. Neurological: The patient is alert and oriented x3. Moves all 4 extremities. DISCHARGE DISPOSITION: Home to self-care. FOLLOWUP: Primary care physician in a week. LIST OF MEDICATIONS: 1. Meperidine 50 mg p.o. every 6 hours as needed for pain. 2. Folic acid 1 tablet p.o. daily. 3. Benadryl 50 mg p.o. at bedtime as needed. 4. Phenergan 12.5 mg 1 tablet p.o. daily as needed. 5. Quetiapine 300 mg 1 tablet p.o. at bedtime. 6. Hydroxyurea 500 mg p.o. twice daily. 7. Keppra 750 mg 1 tablet p.o. daily. 8. Seroquel 50 mg 1 tablet p.o. in the morning. 9. Depakote 250 mg 1 tablet p.o. 3 times per day. cc: Angel Russell MD
== END 2019-03-15 14:54 | disposition home or self-care (01) | DRG 812 ==
LOC: ED 11:52 → SUATTDRO 21:03 → OBSVTOIN 21:03 → 3N 21:03 → INTOOBSV 21:03 → 3N 21:14
PROVIDERS: ATTEND Internal Medicine